=== PATIENT | male | born 1995 | race Two or more races ===

== ENCOUNTER 2020-01-01 17:43 | Emergency (ER) | payer SELFPAY ==
--- NOTE | 2020-01-01 18:33 | CR ---
Right hand: 4 views of the right hand were obtained. Comminuted fractures are seen within the proximal phalanx of the second through fourth fingers. Alignment remains close to anatomic. No additional fracture or other bony abnormality is appreciated. Soft tissue swelling is identified. Impression: 1. Fractures involving the second through fourth fingers as described above. 2. Soft tissue swelling. Diagnostic code #3 This report was dictated in MDT
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
[2020-01-01] MEDS ORDERED: Diphtheria,Pertussis(Acell),Tetanus Vaccine 0.5 ML Syringe IM ONE (19:13)
== END 2020-01-01 19:10 | disposition home or self-care (01) ==
LOC: JD.ED 17:43
DX: S62.610A Displaced fracture of proximal phalanx of right index finger, initial encounter for closed fracture (principal); S62.612A Displaced fracture of proximal phalanx of right middle finger, initial encounter for closed fracture; S62.614A Displaced fracture of proximal phalanx of right ring finger, initial encounter for closed fracture; Z23 Encounter for immunization; W23.0XXA Caught, crushed, jammed, or pinched between moving objects, initial encounter
CPT/HCPCS: 29125; 73130-26-RT; 73130-RT; 90471; 90715; 99283; 99283-25